=== PATIENT | male | born 1995 | race Two or more races ===

== ENCOUNTER 2022-02-17 14:05 | Emergency (ER) | payer OTHER ==
[~2022-02-17] VITALS: Ht 180.3 cm; Wt 122.0 kg
[2022-02-17 14:15] VITALS: BP 107/71
== END 2022-02-17 19:15 | disposition left against medical advice (07) ==
LOC: ER 14:05
DX: S51.811A Laceration without foreign body of right forearm, initial encounter (principal); Z53.21 Procedure and treatment not carried out due to patient leaving prior to being seen by health care provider; W26.9XXA Contact with unspecified sharp object(s), initial encounter; Y93.89 Activity, other specified; Y92.89 Other specified places as the place of occurrence of the external cause; Y99.8 Other external cause status
CPT/HCPCS: 73090